=== PATIENT | female | born 1995 | race Caucasian/White ===

== ENCOUNTER → 2017-09-01 | Emergency (ER) | payer OTHER ==
[~2017-09-01] VITALS: Ht 152.4 cm; Wt 49.9 kg
[~2017-09-01] MED LIST: BACTRIM DS TAB1 EACH PO; FA-80.8 MG; FLAGYL500MG; INDOCIN25 MG; PEPCID40 MG PO; PHENERGAN25 MG PO; VINACAL B PREN1 EACH; ZANTAC300 MG PO
== END | disposition home or self-care (01) ==
LOC: ER 21:58
DX: N39.0 Urinary tract infection, site not specified (principal)

== ENCOUNTER → 2017-11-12 | Emergency (ER) | payer OTHER ==
[~2017-11-12] VITALS: Ht 152.4 cm; Wt 49.9 kg
== END | disposition home or self-care (01) ==
LOC: ER 15:31
DX: Z34.01 Encounter for supervision of normal first pregnancy, first trimester (principal); O20.0 Threatened abortion

== ENCOUNTER 2019-02-28 19:14 | Emergency (ER) | payer OTHER ==
[~2019-02-28] VITALS: Ht 160 cm; Wt 56.7 kg
[2019-03-01] MEDS ORDERED: KETO10TA2 PO (00:41)
== END 2019-03-01 00:49 | disposition home or self-care (01) ==
LOC: ER 19:14
DX: S00.83XA Contusion of other part of head, initial encounter (principal); S06.2X9A Diffuse traumatic brain injury with loss of consciousness of unspecified duration, initial encounter; V09.9XXA Pedestrian injured in unspecified transport accident, initial encounter; Y93.89 Activity, other specified; Y92.89 Other specified places as the place of occurrence of the external cause; Y99.8 Other external cause status

== ENCOUNTER 2024-05-03 04:50 | Day surgery (SDC) | payer OTHER ==
[~2024-05-03 04:50] MED LIST changes: +KETO10TA2 PO
[2024-05-03] MEDS ORDERED: ONDANSETRON HCL 2 MG/ML VIAL IV ONE (10:00)
[2024-05-03] MEDS ORDERED: KETOROLAC TROMETHAMINE 60 MG VIAL IM ONE (10:15)
[2024-05-03] MEDS ORDERED: CEFAZOLIN SODIUM 1,000 MG VIAL IV ONE (14:00)
== END 2024-05-03 13:25 | disposition home or self-care (01) ==
LOC: CIR.AMB 04:50
PROVIDERS: ATTEND Obstetrics & Gynecology
DX: N70.91 Salpingitis, unspecified (principal); R10.2 Pelvic and perineal pain